=== PATIENT | female | born 1990 | race Asian ===

== ENCOUNTER 2021-12-06 07:59 | Inpatient (IN) | payer OTHER ==
[~2021-12-06] VITALS: Ht 160 cm; Wt 112.5 kg
[2021-12-06] MEDS ORDERED: METHYLERGONOVINE MALEATE 0.2 MG/ML IM PRN (09:30)
[2021-12-06] MEDS ORDERED: BUTORPHANOL TARTRATE 2 MG/ML VIAL IV PRN (09:30)
[2021-12-06] MEDS ORDERED: LIDOCAINE HCL 1% 20ML VIAL (Pyxis) INJ INFIL SCH (09:30)
[2021-12-06] MEDS ORDERED: CARBOPROST TROMETHAMINE 250 MCG/ML AMPUL IM PRN (09:30)
[2021-12-06] MEDS ORDERED: NALOXONE HCL 0.4 MG/ML 1ML VIAL IM PRN (09:30)
[2021-12-06 09:40] LABS: CLARITY URINE CLEAR (CLEAR); COLOR URINE YELLOW (YELLOW); KETONES URINE NEGATIVE (NEGATIVE); LEUKOCYTE ESTERASE URINE NEGATIVE (NEGATIVE); NITRITE URINE NEGATIVE (NEGATIVE); OCCULT BLOOD URINE NEGATIVE (NEGATIVE); PROTEIN URINE NEGATIVE (NEGATIVE); SPECIFIC GRAVITY URINE 1.019 (1.005-1.030)
[2021-12-06 09:40] LABS: BASOPHILS % 0.3 % (0.0-2.0); EOSINOPHILS % 0.8 % (0.0-5.0); HEMATOCRIT. 36.3 % (36.0-48.0); HEMOGLOBIN. 12.1 g/dL (12.0-16.0); LYMPHOCYTES % 17.4 % (20.0-50.0); MEAN CORPUSCULAR HEMOGLOBIN 29.8 pg (28.0-32.0); MEAN CORPUSCULAR VOLUME 89.5 fL (81.0-99.0); MEAN PLATELET VOLUME 8.4 fl (7.4-10.4); MONOCYTES % 6.7 % (2.0-8.0); NEUTROPHILS % 74.8 % (40.0-76.0); PLATELET 264 x1000/uL (130-400); RED BLOOD CELL COUNT 4.06 mill/uL (4.2-5.4); RED CELL DISTRIBUTION WIDTH 15.9 % (11.6-14.6)
[2021-12-06 09:49] LABS: CHLORIDE 109 mEq/L (98-107)
[2021-12-06 09:51] LABS: INR 0.9; PARTIAL THROMBOPLASTIN TIME 26.6 sec (23.4-31.0); PROTHROMBIN TIME 9.9 sec (9.6-11.0)
[2021-12-06 09:56] LABS: *AMPHETAMINES SCREEN URINE NEGATIVE (NEGATIVE); *BARBITURATES SCREEN URINE NEGATIVE (NEGATIVE); *BENZODIAZEPINES SCREEN URINE NEGATIVE (NEGATIVE); *COCAINE SCREEN URINE NEGATIVE (NEGATIVE); CANNABINOID URINE SCREEN NEGATIVE (NEGATIVE); METHADONE URINE SCREEN NEGATIVE (NEGATIVE); OPIATES URINE SCREEN NEGATIVE (NEGATIVE); PHENCYCLIDINE URINE SCREEN NEGATIVE (NEGATIVE)
[2021-12-06] MEDS: LACTATED RINGERS 1,000 ML IV SCH ×4 (10:26→17:05)
[2021-12-06] MEDS: OXYTOCIN 30 UNITS/500ML NS PMX 500 ML IV SCH (10:27)
[2021-12-06 11:23] LABS: HEPATITIS B SURFACE ANTIGEN NEGATIVE
[2021-12-06] MEDS ORDERED: ROPIVACAINE HCL/PF EPIDURAL 200 ML EPI SCH (14:15)
[2021-12-07] MEDS: OXYTOCIN 30 UNITS/500ML NS PMX 500 ML IV SCH (00:37)
[2021-12-07] MEDS ORDERED: RHO(D) IMMUNE GLOBULIN 300 MCG/SYR IM PRN (00:45)
[2021-12-07] MEDS ORDERED: IBUPROFEN 400MG TABLET PO PRN (00:45)
[2021-12-07] MEDS ORDERED: BENZOCAINE/LANOLIN/ALOE VERA SPRAY TOP PRN (00:45)
[2021-12-07] MEDS ORDERED: OXYTOCIN 30 UNITS/500ML NS PMX 500 ML IV SCH (00:45)
[2021-12-07] MEDS ORDERED: GLYCERIN/WITCH HAZEL LEAF MEDICATED PAD TOP PRN (00:45)
[2021-12-07] MEDS ORDERED: BISACODYL 10MG SUPP PR PRN (00:45)
[2021-12-07] MEDS ORDERED: DIPHENHYDRAMINE 25MG CAPSULE PO PRN (00:45)
[2021-12-07] MEDS ORDERED: HEMORRHOIDAL SUPP PR PRN (00:45)
[2021-12-07 02:20] VITALS: BP 114/65
[2021-12-07] MEDS: IBUPROFEN 800MG TABLET PO PRN ×3 (03:24→18:25)
[2021-12-07 03:45] VITALS: BP 102/55
[2021-12-07] MEDS: ACETAMINOPHEN WITH CODEINE 300/30MG TABLET PO PRN ×3 (04:44→23:13)
[2021-12-07 08:00] VITALS: BP 99/58
[2021-12-07] MEDS: SIMETHICONE 80MG TABLET CHEW PO SCH ×4 (08:32→21:13)
[2021-12-07] MEDS: MAGNESIUM/ALUMINUM HYDROXIDE/SIMETHICONE 30ML UDC PO SCH ×4 (08:32→21:12)
[2021-12-07] MEDS: LANOLIN OINT 7GM TUBE TOP PRN ×2 (08:32→21:13)
[2021-12-07] MEDS ORDERED: METHYLERGONOVINE MALEATE 0.2MG TABLET PO SCH (09:00)
[2021-12-07] MEDS ORDERED: TETANUS, DIPHTHERIA, PERTUSSIS VAC/PF 0.5ML (>10YR OLD) IM ONE (09:00)
[2021-12-07 13:00] VITALS: BP 104/61
[2021-12-07 17:00] VITALS: BP 98/60
[2021-12-07 19:30] VITALS: BP 113/66
[2021-12-08 04:00] VITALS: BP 110/61
[2021-12-08] MEDS ORDERED: FERROUS SULFATE 325MG TABLET PO SCH (07:30)
[2021-12-08 07:42] LABS: BASOPHILS % 0.4 % (0.0-2.0); EOSINOPHILS % 1.8 % (0.0-5.0); HEMATOCRIT. 30.3 % (36.0-48.0); HEMOGLOBIN. 10.5 g/dL (12.0-16.0); MEAN PLATELET VOLUME 8.7 fl (7.4-10.4); MONOCYTES % 5.9 % (2.0-8.0); NEUTROPHILS % 63.9 % (40.0-76.0); PLATELET 226 x1000/uL (130-400); RED CELL DISTRIBUTION WIDTH 15.7 % (11.6-14.6)
[2021-12-08] MEDS: MAGNESIUM/ALUMINUM HYDROXIDE/SIMETHICONE 30ML UDC PO SCH (08:48)
[2021-12-08] MEDS: IBUPROFEN 800MG TABLET PO PRN (08:48)
[2021-12-08] MEDS: SIMETHICONE 80MG TABLET CHEW PO SCH (08:49)
== END 2021-12-08 11:05 | disposition home or self-care (01) | DRG 560 ==
LOC: 8 EST LDRP 07:59 → OBSVTOIN 07:59 → 8EST 12-07 02:16
PROVIDERS: ADMIT Obstetrics & Gynecology; ATTEND Obstetrics & Gynecology
PROC: 10E0XZZ Delivery of Products of Conception, External Approach (ICD-10-PCS; principal; 2021-12-06)
PROC: 0KQM0ZZ Repair Perineum Muscle, Open Approach (ICD-10-PCS; 2021-12-06)
PROC: 3E0R3BZ Introduction of Anesthetic Agent into Spinal Canal, Percutaneous Approach (ICD-10-PCS; 2021-12-06)
PROC: 00HU33Z Insertion of Infusion Device into Spinal Canal, Percutaneous Approach (ICD-10-PCS; 2021-12-06)
DX: O77.0 Labor and delivery complicated by meconium in amniotic fluid (principal); Z37.0 Single live birth; O69.81X0 Labor and delivery complicated by cord around neck, without compression, not applicable or unspecified; O70.1 Second degree perineal laceration during delivery; Z20.822 Contact with and (suspected) exposure to COVID-19; Z3A.40 40 weeks gestation of pregnancy
CPT/HCPCS: 36415; 76805; 76818; 80053; 80305; 81003; 85025; 86592; 86703; 86762; 86850; 86900; 87340; 87426; 90715; 99281; G0378; J2795; J7120; A4315; J2590